=== PATIENT | female | born 1945 | race Caucasian/White ===

== ENCOUNTER → 2016-04-18 | Outpatient (CLI) | payer MEDICARE ==
--- NOTE | 2016-04-18 14:04 | MM ---
Reason for exam: follow-up at short interval from prior study. Last mammogram was performed 6 months ago. History: Patient is postmenopausal. Benign stereotactic core biopsy of the left breast, August 18, 1998. Took estrogen for 1 year beginning at age 57. Physical Findings: Nurse did not find any significant physical abnormalities on exam. MG 3D Diag Mammo W/Cad RT CC and MLO view(s) were taken of the right breast. Prior study comparison: November 01, 2015, bilateral MG 3d screening mammo w/cad. September 10, 2014, bilateral MG diagnostic mammo w CAD AALIYAH. Finding: There are calcifications in the upper outer quadrant of the right breast. No significant changes in finding since November 01, 2015 and September 10, 2014. These results were verbally communicated with the patient and result sheet given to the patient on 04/18/16. ASSESSMENT: Benign, BI-RAD 2 RECOMMENDATION: Return to routine screening mammogram schedule for both breasts. Back on schedule.
== END ==
LOC: RADMAMWWP 12:45
PROVIDERS: ATTEND Family Medicine
DX: R92.8 Other abnormal and inconclusive findings on diagnostic imaging of breast (principal)
CPT/HCPCS: G0206; G0279

== ENCOUNTER → 2016-11-27 | Outpatient (CLI) | payer MEDICARE ==
--- NOTE | 2016-11-29 10:06 | MM ---
Reason for exam: screening (asymptomatic). Last mammogram was performed 7 months ago. History: Patient is postmenopausal. Benign stereotactic core biopsy of the left breast, August 18, 1998. Took estrogen for 1 year beginning at age 57. Physical Findings: A clinical breast exam by your physician is recommended on an annual basis and results should be correlated with mammographic findings. MG 3D Screening Mammo W/Cad Bilateral CC and MLO view(s) were taken. Prior study comparison: April 18, 2016, right breast MG 3d diag mammo w/cad RT. November 01, 2015, bilateral MG 3d screening mammo w/cad. September 10, 2014, bilateral MG diagnostic mammo w CAD AALIYAH. September 08, 2013, bilateral MG screening mammo w CAD. August 25, 2012, bilateral digital screening mammo w/CAD. There are scattered fibroglandular densities. No significant changes when compared with prior studies. ASSESSMENT: Benign, BI-RAD 2 RECOMMENDATION: Routine screening mammogram of both breasts in 1 year.
== END | disposition home or self-care (01) ==
LOC: RADMAMWWP 06:56
PROVIDERS: ATTEND Family Medicine
DX: Z12.31 Encounter for screening mammogram for malignant neoplasm of breast (principal); Z78.0 Asymptomatic menopausal state
CPT/HCPCS: 77063; G0202

== ENCOUNTER → 2018-03-05 | Outpatient (CLI) | payer MEDICARE ==
--- NOTE | 2018-03-06 09:56 | MM ---
Reason for exam: screening (asymptomatic). Last mammogram was performed 1 year and 3 months ago. History: Patient is postmenopausal. Benign stereotactic core biopsy of the left breast, August 18, 1998. Took estrogen for 1 year beginning at age 57. Physical Findings: A clinical breast exam by your physician is recommended on an annual basis and results should be correlated with mammographic findings. MG 3D Screening Mammo W/Cad Bilateral CC and MLO view(s) were taken. Prior study comparison: November 27, 2016, bilateral MG 3d screening mammo w/cad. April 18, 2016, right breast MG 3d diag mammo w/cad RT. The breast tissue is heterogeneously dense. This may lower the sensitivity of mammography. There are benign appearing round calcifications bilaterally. Previous mammotome biopsy in the left breast. Asymmetric breast tissue left inferior breast. There is no discrete abnormality. ASSESSMENT: Benign, BI-RAD 2 RECOMMENDATION: Routine screening mammogram of both breasts in 1 year.
== END | disposition home or self-care (01) ==
LOC: RADMAMWWP 09:32
PROVIDERS: ATTEND Family Medicine
DX: Z12.31 Encounter for screening mammogram for malignant neoplasm of breast (principal)
CPT/HCPCS: 77063; 77067

== ENCOUNTER → 2019-05-08 | Outpatient (CLI) | payer MEDICARE ==
--- NOTE | 2019-05-11 14:24 | MM ---
Reason for exam: screening (asymptomatic). Last mammogram was performed 1 year and 2 months ago. History: Patient is postmenopausal. Benign stereotactic core biopsy of the left breast, August 18, 1998. Took estrogen for 1 year beginning at age 57. Physical Findings: A clinical breast exam by your physician is recommended on an annual basis and results should be correlated with mammographic findings. MG 3D Screening Mammo W/Cad Bilateral CC and MLO view(s) were taken. Prior study comparison: March 05, 2018, bilateral MG 3d screening mammo w/cad. November 27, 2016, bilateral MG 3d screening mammo w/cad. The breast tissue is heterogeneously dense. This may lower the sensitivity of mammography. There is no discrete abnormality. No significant changes when compared with prior studies. ASSESSMENT: Negative, BI-RAD 1 RECOMMENDATION: Routine screening mammogram of both breasts in 1 year.
== END | disposition home or self-care (01) ==
LOC: RADMAMWWP 15:12
PROVIDERS: ATTEND Family Medicine
DX: Z12.31 Encounter for screening mammogram for malignant neoplasm of breast (principal)
CPT/HCPCS: 77063; 77067

== ENCOUNTER → 2020-04-21 | Outpatient (CLI) | payer MEDICARE ==
--- NOTE | 2020-04-21 13:27 | US ---
EXAMINATION TYPE: US venous doppler duplex LE LT DATE OF EXAM: 04/21/2020 1:09 PM COMPARISON: NONE CLINICAL HISTORY: M79.605 pain in limb, R60.0 edema. Left leg swelling. Pain. No hx DVT. Not on bl ood thinners. SIDE PERFORMED: Left TECHNIQUE: The lower extremity deep venous system is examined utilizing real time linear array sonog bobbi with graded compression, doppler sonography and color-flow sonography. VESSELS IMAGED: Common Femoral Vein Deep Femoral Vein Greater Saphenous Vein * Femoral Vein Popliteal Vein Small Saphenous Vein * Proximal Calf Veins (* superficial vessels) Left Leg: Negative for DVT, edema channels seen Grayscale, color doppler, spectral doppler imaging performed of the deep veins of the left lower extr emity. There is normal flow, compressibility, vascular waveforms. IMPRESSION: No ultrasound evidence for acute DVT in the left lower extremity.
== END | disposition home or self-care (01) ==
LOC: RADUSWWP 12:48
PROVIDERS: ATTEND Family Medicine
DX: M79.605 Pain in left leg (principal); R60.0 Localized edema

== ENCOUNTER → 2020-09-14 | Outpatient (CLI) | payer MEDICARE ==
[2020-09-14 13:29] VITALS: BP 121/64; PULSE 80; RESP 18; TEMP 97.7; BMI 25.4
--- NOTE | 2020-09-14 14:10 | P.HPBAR ---
Bariatric H&P - History & Physicial H&P Date: 09/14/20 History & Physicial: Visit/CC: initial visit Patient initial contact: Initial weight: Initial weight in pounds: Height: 5 ft 2 in Initial BMI: Last weight: Current weight: 63.049 kg Current weight in pounds: 139.00 Current BMI: 25.4 [place] body weight (based on NIH guidelines): 49.895 kg Excess body weight loss: The patient is a 75 year-old F who presents for Bariatric Assessment. DATE OF SERVICE: 09/14/2020 REASON FOR CONSULTATION: Complications bariatric surgery. HISTORY OF PRESENT ILLNESS: Vida Winter is a 75-year-old female who presents first time in consultation for revision of her bariatric surgery. She reports unintentional weight loss. She can only tolerate muscle milk, strawberry type. She comes in with loss of muscle mass. She has problem with large and quick bowel movements. She had a gastric bypass 4 years ago, 2016. Her highest weight was 240 pounds. Her lowest weight is at present. She has occassional dysphagia with eating eggs. She reports often liquid soft stool. She had poor follow-up after her gastric bypass. She denies current abdominal pain. She reports having hemorrhoids and prolapsed uterus. She is concerned about losing her uterus. She does not see a reinstatement clerk or pelvic spring floor service worker. She does not want to lose any further weight. She complains of skin elastosis of the thighs and arms. She wants skin removal. She presents to me in consultation with multiple complaints including diarrhea, dysphagia, skin elastosis, and dietary management. At height of 5 feet 2 inches, her ideal body weight is 135 pounds. Her highest weight was 240 pounds, initial body mass index 44.0. She comes in 139 pounds. Liftime weight loss of 101 pounds. Lifetime percent excess weight loss of 96%. PAST MEDICAL HISTORY: 1. Morbid obesity due to excess calories 2. Body mass index of 44.0, initial 3. Hypertensive heart disease 4. Insomnia 5. Osteoarthritis of the knees 6. Cataracts 7. Parathyroid adenoma 8. Depressive disorder PAST SURGICAL HISTORY: 1. Parathyroidectomy 2. Cholecystectomy 3. Tonsillectomy 4. Biateral cataract surgery 5. Gastric bypass, 2016 HOME MEDICATIONS: Home Medications Medication Instructions Recorded Confirmed Melatonin 5 mg PO HS 01/11/14 10/20/20 Acetaminophen [Tylenol Extra 500 mg PO DIRECTED PRN 09/14/20 10/20/20 Strength] Oxybutynin Chloride [Ditropan XL] 2.5 mg PO DAILY 09/14/20 10/20/20 amLODIPine [Norvasc] 10 mg PO DAILY 09/14/20 10/20/20 Biotin 10,000 mcg PO DAILY 10/05/20 10/20/20 Jason/D3/Mag11/Zinc/Cannery Worker/Abe/Bor 1 each PO DAILY 10/05/20 10/20/20 [Caltrate 600+D Plus Tablet] Cholecalciferol [Vitamin D3 (25 50 mcg PO DAILY 10/05/20 10/20/20 Mcg = 1000 Iu)] Cyanocobalamin/Cobamamide [Vitamin 1 each SL DIRECTED 10/05/20 10/20/20 B-12 5,000 Mcg Tab Sl] Glucosam/Asif-Msm1/C/Abe/Bosw 2 each PO DAILY 10/05/20 10/20/20 [Pmhzbqzjwmt-Dzkrnyfrhwz-WDW Tb] Losartan Potassium [Cozaar] 100 mg PO DAILY 10/05/20 10/20/20 Metoprolol Succinate [Toprol XL] 25 mg PO DAILY 10/05/20 10/20/20 [place]-3 Fatty Acids [[place]-3] 900 mg PO DAILY 10/05/20 10/20/20 Pedi Multivit No.25/Folic Acid 2 tab PO DAILY 10/05/20 10/20/20 [Flintstones Multivit Chew Tab] Potassium Gluconate [Potassium 99 mg PO DAILY 10/05/20 10/20/20 Gluconate ER] Vitamin B Complex 1 each PO DAILY 10/05/20 10/20/20 diphenhydrAMINE HCL [Benadryl] 50 mg PO HS 10/05/20 10/20/20 ALLERGIES: Allergies Allergy/AdvReac Type Severity Reaction Status Date / Time No Known Allergies Allergy Verified 10/20/20 13:09 SOCIAL HISTORY: Denies past tobacco use. FAMILY HISTORY: No family history of ulcerative colitis disease or Crohn's disease. Family history of morbid obesity. No lupus in the family. No reports of stomach or esophageal cancer. REVIEW OF ORGAN SYSTEMS: CONSTITUTIONAL: At height of 5 feet 2 inches, her ideal body weight is 135 pounds. Her highest weight was 240 pounds, initial body mass index 44.0. She comes in 139 pounds. Liftime weight loss of 101 pounds. Lifetime percent excess weight loss of 96%. HEENT: Denies any active troubles with hearing. Has troubles with swallowing. Has cataracts. ENDOCRINE: Denies diabetes. No hypothyroidism. CARDIOVASCULAR: Denies past reports of palpitations or heart attacks or chest pain. Has hypertensive heart disease. RESPIRATORY: Denies daytime somnolence. Has asthma. Denies chronic obstructive pulmonary disease. GASTROINTESTINAL: Denies any bright red blood per rectum. No diarrhea. No c onstipation. Has gastroesophageal reflux disease. GENITOURINARY: Has bladder urgency. No recent blood in urine MUSCULOSKELETAL: Has lower back pain and joint pain. Has osteoarthritis of the knees. NEURO: No headaches. No seizure disorders. Has neuropathy. PSYCH: Has depression. No suicidal ideation. RHEUMATOLOGIC: No lupus. No rheumatoid arthritis. HEMATOLOGIC: Denies any abnormal bleeding or bruising. SKIN: No rash. No skin cancer. PHYSICAL EXAM: VITAL SIGNS: Height 5 foot 2 inches, weight 138 pounds. BMI 25.4 Vital Signs Temp 97.7 F 09/14/20 13:14 Pulse 80 09/14/20 13:14 Resp 18 09/14/20 13:14 BP 121/64 09/14/20 13:14 Pulse Ox GENERAL: Well-developed in no acute distress. HEENT: No scleral icterus. Extraocular movements grossly intact. Hears conversational speech. No nasal drainage. NECK: Supple without lymphadenopathy. CHEST: Nonlabored respirations with equal bilateral excursions. CARDIOVASCULAR: Regular rate and regular rhythm. Distal 2+ pulses. ABDOMEN: Obese, soft, nontender, nondistended. MUSCULOSKELETAL: No clubbing, cyanosis. NEURO: No focal or lateralizing signs. Cranial nerves 2 through 12 grossly within normal limits. PSYCH: Appropriate affect. Alert and oriented to person, place and time. SKIN: Good skin turgor. Well perfused. Moderate skin elastosis ASSESSMENT: 1. Skin elastosis 2. Dysphagia 3. Diarrhea 4. Dietary surveillance 5. Morbid obesity due to excess calories, resolved 6. Body mass index of 44.0, initial to 25.4 7. Hypertensive heart disease 8. Insomnia 9. Osteoarthritis of the knees 10. Cataracts 11. Parathyroid adenoma 12. Depressive disorder PLAN: 1. She has concerns regarding her uterus and prolapse. Recommend referral to reinstatement clerk or pelvic spring floor service worker. 2. She has skin elastosis of the thighs and arms. Referral to cosmetic surgeon described. 3. Recommend start food diary journal. 4. Recommend bariatric labs 5. Recommend upper endoscopy 6. Recommend colonoscopy Thank you for this consultation. Past Medical History Past Medical History: Eye Disorder, Hypertension Additional Past Medical History / Comment(s): CATARACT-left, urinary leakage. previous H. Pylori infection before bariatric surgery, treated. History of Any Multi-Drug Resistant Organisms: None Reported Past Surgical History: Bariatric Surgery, Cholecystectomy, Tonsillectomy Additional Past Surgical History / Comment(s): PARATHYROID SURGERY,LAPAROSCOPIC EXAM, cataract bilateral eye. 2017 - bypass surgery. Past Anesthesia/Blood Transfusion Reactions: No Reported Reaction Past Psychological History: Depression Additional Psychological History / Comment(s): depression approximately 30 years ago Smoking Status: Never smoker Past Alcohol Use History: Occasional Past Drug Use History: None Reported - Past Family History Sister(s) Additional Family Medical History / Comment(s): PULMONARY EMBOLISM Father Family Medical History: Cancer Surgical - Exam Vital Signs Temp Pulse Resp BP 97.7 F 80 18 121/64 09/14/20 13:14 09/14/20 13:14 09/14/20 13:14 09/14/20 13:14 Results - Labs 09/14/20 14:41 09/14/20 14:41 Bariatric Checklist Checklist: Plan: Checklist: EGD: 1. Hiatal hernia: 2. H. Pylori: HgbA1c: Vitamin D: Smoking: Never smoker Primary care physician referral: Dr. Johana Sosa Psychiatry clearance: Cardiology clearance: Sleep study: Diet journal: VTE risk score: VTE risk level: Rehab needs at discharge:
[2020-09-14 15:08] LABS: HCT 35.9 % (34.0-46.0); HGB 11.5 gm/dL (11.4-16.0); MCH 31.5 pg (25.0-35.0); MCHC 32.1 g/dL (31.0-37.0); MCV 98.2 fL (80.0-100.0); Mean Platelet Volume 6.8; Platelet Count 311 k/uL (150-450); RBC 3.65 m/uL (3.80-5.40); WBC 8.1 k/uL (3.8-10.6)
[2020-09-14 15:17] LABS: Partial Thromboplastin Time 24.5 sec (22.0-30.0); Prothrombin Time 10.3 sec (9.0-12.0)
[2020-09-14 21:19] LABS: % Iron Saturation 11.72 (12.00-45.00); ALT 22 U/L (8-44); AST 20 U/L (13-35); Albumin/Globulin Ratio 1.91 (1.60-3.17); Alkaline Phosphatase 134 U/L (41-126); Calcium 9.2 mg/dL (8.7-10.3); Carbon Dioxide 26.5 mmol/L (21.6-31.8); Chloride 105 mmol/L (96-109); Chol/HDL Ratio 2.56; Cholesterol 161 mg/dL (0-200); Globulin 2.3 g/dL (1.6-3.3); Glucose 116 mg/dL (70-110); Iron 34 ug/dL (50-170); LDL Cholesterol,Calculated 80.2 mg/dL (0.0-131.0); Phosphorus 3.4 mg/dL (2.4-5.1); Potassium 3.9 mmol/L (3.5-5.5); Sodium 140 mmol/L (135-145); Total Bilirubin 0.5 mg/dL (0.3-1.2); Total Iron Binding Capacity 290 ug/dL (228-460); Total Protein 6.7 g/dL (6.2-8.2)
[2020-09-14 21:26] LABS: Ferritin 137.9 ng/mL (10.0-291.0)
[2020-09-14 22:25] LABS: Estimated Average Glucose 96.8
[2020-09-15 00:39] LABS: Folate, Serum >24.0 ng/mL
[2020-09-15 14:11] LABS: Zinc, Serum 76 ug/dL (60-130)
[2020-09-16 06:51] LABS: Vitamin A 28 ug/dL (38-106)
[2020-09-19 13:46] LABS: Vit B1(Thiamine) 69 ug/L (38-122)
[2020-09-19 19:19] LABS: Selenium 88 mcg/L (63-160)
== END ==
LOC: BARWHC3 12:45
PROVIDERS: ATTEND Surgery Plastic and Reconstructive Surgery
DX: K95.89 Other complications of other bariatric procedure (principal); L87.2 Elastosis perforans serpiginosa; R13.10 Dysphagia, unspecified; R19.7 Diarrhea, unspecified; Z71.3 Dietary counseling and surveillance; I11.9 Hypertensive heart disease without heart failure; G47.00 Insomnia, unspecified; M17.0 Bilateral primary osteoarthritis of knee; H26.9 Unspecified cataract; F32.9 Major depressive disorder, single episode, unspecified; D35.1 Benign neoplasm of parathyroid gland; Z83.49 Family history of other endocrine, nutritional and metabolic diseases; Z79.899 Other long term (current) drug therapy
CPT/HCPCS: 84255; 84134; 84425; 80061; 80053; 82607; 82728; 82525; 82746; 83540; 83550; 83735; 84100; 84443; 84590; 84630; 85027; 85610; 85730; 82306; 83970; 83036; 36415; G0463; 99203

== ENCOUNTER → 2020-10-05 | Outpatient (CLI) | payer MEDICARE ==
[2020-10-05 14:57] VITALS: BP 127/74; PULSE 91; RESP 18; TEMP 98.4; BMI 25.4
--- NOTE | 2020-10-05 15:21 | P.PN ---
Subjective Progress Note Date: 10/05/20 DATE OF SERVICE: 10/05/2020 CHIEF COMPLAINTS: Status post gastric bypass HISTORY OF PRESENT ILLNESS: Vida Winter is a 75-year-old female who had a gastric bypass 4 years ago, 2017. She comes in with troubles with persistent weight loss. She brings in her food journal. Her protein intake less than 30 to 40 grams daily. She reports low energy. She avoids meats as its not easy to digest. She tolerates deviled eggs. She does not want to loose anymore weight. At height of 5 feet 2 inches, her ideal body weight is 135 pounds. Her highest weight was 240 pounds, initial body mass index 44.0. She comes in 139 pounds. Her weight is unchanged from 3 weeks ago. Liftime weight loss of 101 pounds. Lifetime percent excess weight loss of 96%. PAST MEDICAL HISTORY: 1. Morbid obesity due to excess calories 2. Body mass index of 44.0, initial 3. Hypertensive heart disease 4. Insomnia 5. Osteoarthritis of the knees 6. Cataracts 7. Parathyroid adenoma 8. Depressive disorder PAST SURGICAL HISTORY: 1. Parathyroidectomy 2. Cholecystectomy 3. Tonsillectomy 4. Biateral cataract surgery 5. Gastric bypass, 2016 HOME MEDICATIONS: Home Medications Medication Instructions Recorded Confirmed Melatonin 5 mg PO HS 01/11/14 10/20/20 Acetaminophen [Tylenol Extra 500 mg PO DIRECTED PRN 09/14/20 10/20/20 Strength] Oxybutynin Chloride [Ditropan XL] 2.5 mg PO DAILY 09/14/20 10/20/20 amLODIPine [Norvasc] 10 mg PO DAILY 09/14/20 10/20/20 Biotin 10,000 mcg PO DAILY 10/05/20 10/20/20 Jason/D3/Mag11/Zinc/Nutritional Assistant/Abe/Bor 1 each PO DAILY 10/05/20 10/20/20 [Caltrate 600+D Plus Tablet] Cholecalciferol [Vitamin D3 (25 50 mcg PO DAILY 10/05/20 10/20/20 Mcg = 1000 Iu)] Cyanocobalamin/Cobamamide [Vitamin 1 each SL DIRECTED 10/05/20 10/20/20 B-12 5,000 Mcg Tab Sl] Glucosam/Asif-Msm1/C/Abe/Bosw 2 each PO DAILY 10/05/20 10/20/20 [Gfnhausxcfg-Rpmofviasdv-FYU Tb] Losartan Potassium [Cozaar] 100 mg PO DAILY 10/05/20 10/20/20 Metoprolol Succinate [Toprol XL] 25 mg PO DAILY 10/05/20 10/20/20 [place]-3 Fatty Acids [[place]-3] 900 mg PO DAILY 10/05/20 10/20/20 Pedi Multivit No.25/Folic Acid 2 tab PO DAILY 10/05/20 10/20/20 [Flintstones Multivit Chew Tab] Potassium Gluconate [Potassium 99 mg PO DAILY 10/05/20 10/20/20 Gluconate ER] Vitamin B Complex 1 each PO DAILY 10/05/20 10/20/20 diphenhydrAMINE HCL [Benadryl] 50 mg PO HS 10/05/20 10/20/20 ALLERGIES: Allergies Allergy/AdvReac Type Severity Reaction Status Date / Time No Known Allergies Allergy Verified 10/20/20 13:09 SOCIAL HISTORY: Denies past tobacco use. FAMILY HISTORY: No family history of ulcerative colitis disease or Crohn's disease. Family history of morbid obesity. No lupus in the family. No reports of stomach or esophageal cancer. REVIEW OF ORGAN SYSTEMS: CONSTITUTIONAL: At height of 5 feet 2 inches, her ideal body weight is 135 pounds. Her highest weight was 240 pounds, initial body mass index 44.0. She comes in 139 pounds. Liftime weight loss of 101 pounds. Lifetime percent excess weight loss of 96%. HEENT: Denies any active troubles with hearing. Has troubles with swallowing. Has cataracts. ENDOCRINE: Denies diabetes. No hypothyroidism. CARDIOVASCULAR: Denies past reports of palpitations or heart attacks or chest pain. Has hypertensive heart disease. RESPIRATORY: Denies daytime somnolence. Has asthma. Denies chronic obstructive pulmonary disease. GASTROINTESTINAL: Denies any bright red blood per rectum. No diarrhea. No constipation. Has gastroesophageal reflux disease. GENITOURINARY: Has bladder urgency. No recent blood in urine MUSCULOSKELETAL: Has lower back pain and joint pain. Has osteoarthritis of the knees. NEURO: No headaches. No seizure disorders. Has neuropathy. PSYCH: Has depression. No suicidal ideation. RHEUMATOLOGIC: No lupus. No rheumatoid arthritis. HEMATOLOGIC: Denies any abnormal bleeding or bruising. SKIN: No rash. No skin cancer. PHYSICAL EXAM: VITAL SIGNS: Height 5 foot 2 inches, weight 139 pounds. BMI 25.4 Vital Signs Temp 98.4 F 10/05/20 14:52 Pulse 91 10/05/20 14:52 Resp 18 10/05/20 14:52 BP 127/74 10/05/20 14:52 Pulse Ox GENERAL: Well-developed in no acute distress. HEENT: No scleral icterus. Extraocular movements grossly intact. Hears conversational speech. No nasal drainage. NECK: Supple without lymphadenopathy. CHEST: Nonlabored respirations with equal bilateral excursions. CARDIOVASCULAR: Regular rate and regular rhythm. Distal 2+ pulses. ABDOMEN: Obese, soft, nontender, nondistended. MUSCULOSKELETAL: No clubbing, cyanosis. NEURO: No focal or lateralizing signs. Cranial nerves 2 through 12 grossly within normal limits. PSYCH: Appropriate affect. Alert and oriented to person, place and time. SKIN: Good skin turgor. Well perfused. Moderate skin elastosis LABS: Reviewed. Iron is low. Pre-albumin is low. Vitamin A is low. PTH elevated. Vitamin B-12 elevated. ASSESSMENT: 1. Skin elastosis 2. Dysphagia 3. Diarrhea 4. Dietary surveillance 5. Morbid obesity due to excess calories, resolved 6. Body mass index of 44.0, initial to 25.4 7. Hypertensive heart disease 8. Insomnia 9. Osteoarthritis of the knees 10. Cataracts 11. Parathyroid adenoma 12. Depressive disorder 13. Iron deficiency 14. Vitamin A deficiency 15. Hyperparathyroidism 16. Dietary surveillance and counseling. PLAN: 1. Recommend iron infusion 2. Recommend Vitamin A supplement 10,000 units daily 3. Increase calcium daily intake 1200 mg daily 4. Recommend upper endoscopy for dysphagia to textured foods. She is elevated risk for stricture and complications due to gastric bypass. Objective - Vital Signs Vital signs: Vital Signs Temp 98.4 F 10/05/20 14:52 Pulse 91 10/05/20 14:52 Resp 18 10/05/20 14:52 BP 127/74 10/05/20 14:52 Pulse Ox Intake & Output 10/04/20 10/05/20 10/05/20 18:59 06:59 18:59 Weight 63.049 kg
== END ==
LOC: BARWHC3 14:42
PROVIDERS: ATTEND Surgery Plastic and Reconstructive Surgery
DX: R13.10 Dysphagia, unspecified (principal); L87.2 Elastosis perforans serpiginosa; R19.7 Diarrhea, unspecified; Z71.3 Dietary counseling and surveillance; E66.01 Morbid (severe) obesity due to excess calories; I11.9 Hypertensive heart disease without heart failure; G47.00 Insomnia, unspecified; M17.0 Bilateral primary osteoarthritis of knee; H26.9 Unspecified cataract; D35.1 Benign neoplasm of parathyroid gland; F32.9 Major depressive disorder, single episode, unspecified; E61.1 Iron deficiency; E50.9 Vitamin A deficiency, unspecified; E21.3 Hyperparathyroidism, unspecified; Z68.25 Body mass index [BMI] 25.0-25.9, adult; Z98.84 Bariatric surgery status; Z79.899 Other long term (current) drug therapy
CPT/HCPCS: 99211

== ENCOUNTER → 2020-12-22 | Outpatient (CLI) | payer MEDICARE ==
[2020-12-23 05:11] LABS: % Iron Saturation 46.04 (12.00-45.00)
[2020-12-23 05:20] LABS: Ferritin 516.9 ng/mL (10.0-291.0)
== END | disposition home or self-care (01) ==
LOC: LABWHC1 12:10
PROVIDERS: ATTEND Surgery Plastic and Reconstructive Surgery
DX: E66.01 Morbid (severe) obesity due to excess calories (principal); D50.8 Other iron deficiency anemias; Z98.84 Bariatric surgery status
CPT/HCPCS: 36415; 82728; 83540; 83550; 83970; 84134; 84590

== ENCOUNTER 2020-12-24 13:37 | Emergency (ER) | payer MEDICARE ==
[2020-12-24 13:47] VITALS: TEMP 98.7
[2020-12-24] MEDS ORDERED: SODIUM CHLORIDE 0.9% 500 ML 500 ML IV STA (14:18)
--- NOTE | 2020-12-24 14:22 | ED ---
Abdominal Pain HPI - General Chief Complaint: Abdominal Pain Stated Complaint: R side Abd pain,vomiting Time Seen by Provider: 12/24/20 14:10 Source: patient, family, RN notes reviewed, old records reviewed Mode of arrival: ambulatory Limitations: no limitations - History of Present Illness Initial Comments: 75-year-old female patient, alert and oriented 4, presents to the emergency room with right lower quadrant pain for the past 2 weeks on and off. She describes it as an ache. She denies any fevers or chills. She denies any shortness of breath or chest pain. She is concerned that she might have an appendicitis. She states that when the pain does come in 10 out of 10 but it is gone at this time. No history of diverticulosis she does have a surgical history of cholecystectomy and bariatric surgery. MD Complaint: abdominal pain -: week(s) (2) Location: RLQ Radiation: none Severity scale (1-10): 0 Quality: aching Consistency: now resolved Improves With: other (Lying flat) Worsens With: movement Associated Symptoms: nausea - Related Data Home Medications Medication Instructions Recorded Confirmed Melatonin 5 mg PO HS 01/11/14 10/20/20 Acetaminophen [Tylenol Extra 500 mg PO DIRECTED PRN 09/14/20 10/20/20 Strength] Oxybutynin Chloride [Ditropan XL] 2.5 mg PO DAILY 09/14/20 10/20/20 amLODIPine [Norvasc] 10 mg PO DAILY 09/14/20 10/20/20 Biotin 10,000 mcg PO DAILY 10/05/20 10/20/20 Jason/D3/Mag11/Zinc/Player Development Executive/Abe/Bor 1 each PO DAILY 10/05/20 10/20/20 [Caltrate 600+D Plus Tablet] Cholecalciferol [Vitamin D3 (25 50 mcg PO DAILY 10/05/20 10/20/20 Mcg = 1000 Iu)] Cyanocobalamin/Cobamamide [Vitamin 1 each SL DIRECTED 10/05/20 10/20/20 B-12 5,000 Mcg Tab Sl] Glucosam/Asif-Msm1/C/Abe/Bosw 2 each PO DAILY 10/05/20 10/20/20 [Bqaddzrphvz-Kgflimejtdi-WAB Tb] Losartan Potassium [Cozaar] 100 mg PO DAILY 10/05/20 10/20/20 Metoprolol Succinate [Toprol XL] 25 mg PO DAILY 10/05/20 10/20/20 [place]-3 Fatty Acids [[place]-3] 900 mg PO DAILY 10/05/20 10/20/20 Pedi Multivit No.25/Folic Acid 2 tab PO DAILY 10/05/20 10/20/20 [[place] Multivit Chew Tab] Potassium Gluconate [Potassium 99 mg PO DAILY 10/05/20 10/20/20 Gluconate ER] Vitamin B Complex 1 each PO DAILY 10/05/20 10/20/20 diphenhydrAMINE HCL [Benadryl] 50 mg PO HS 10/05/20 10/20/20 Previous Rx's Medication Instructions Recorded HYDROcodone/APAP 5-325MG [[place] 1 tab PO Q6HR PRN 3 Days #12 tab 12/24/20 5-325] HYDROcodone/APAP 5-325MG [[place] 1 tab PO Q6HR PRN 3 Days #12 tab 12/24/20 5-325] Sulfamethox-Tmp 800-160Mg [Bactrim 1 each PO Q12HR 7 Days #14 tab 12/24/20 Ds] Allergies Allergy/AdvReac Type Severity Reaction Status Date / Time No Known Allergies Allergy Verified 12/24/20 13:47 Review of Systems ROS Statement: Those systems with pertinent positive or pertinent negative responses have been documented in the HPI. ROS Other: All systems not noted in ROS Statement are negative. Past Medical History Past Medical History: Eye Disorder, Hypertension Additional Past Medical History / Comment(s): CATARACT-left, urinary leakage. previous H. Pylori infection before bariatric surgery, treated. History of Any Multi-Drug Resistant Organisms: None Reported Past Surgical History: Bariatric Surgery, Cholecystectomy, Tonsillectomy Additional Past Surgical History / Comment(s): PARATHYROID SURGERY,LAPAROSCOPIC EXAM, cataract bilateral eye. 2017 - bypass surgery. Past Anesthesia/Blood Transfusion Reactions: No Reported Reaction Past Psychological History: Depression Smoking Status: Never smoker Past Alcohol Use History: Occasional Past Drug Use History: None Reported - Past Family History Sister(s) Additional Family Medical History / Comment(s): PULMONARY EMBOLISM Father Family Medical History: Cancer General Exam Limitations: no limitations General appearance: alert, in no apparent distress Head exam: Present: atraumatic, normocephalic, normal inspection Eye exam: Present: normal appearance, PERRL, EOMI. Absent: scleral icterus, conjunctival injection, periorbital swelling ENT exam: Present: normal exam, mucous membranes moist Neck exam: Present: normal inspection, full ROM. Absent: tenderness, meningismus, lymphadenopathy, thyromegaly Respiratory exam: Present: normal lung sounds bilaterally. Absent: respiratory distress, wheezes, rales, rhonchi, stridor Cardiovascular Exam: Present: regular rate, normal rhythm, normal heart sounds. Absent: systolic murmur, diastolic murmur, rubs, gallop, clicks GI/Abdominal exam: Present: soft, mass (midline large abdominal mass). Absent: distended, tenderness, rigid Extremities exam: Present: normal inspection, full ROM, normal capillary refill. Absent: tenderness, pedal edema, joint swelling, calf tenderness Back exam: Present: normal inspection, full ROM. Absent: tenderness, CVA tenderness (R), CVA tenderness (L) Expanded Back exam: Absent: saddle anesthesia Back exam: Negative Straight Leg Raising: Left, Right Neurological exam: Present: alert, oriented X3, CN II-XII intact Psychiatric exam: Present: normal affect, normal mood Skin exam: Present: warm, dry, intact, normal color. Absent: rash, cyanosis, diaphoretic, erythema, petechiae, pallor Course Vital Signs 12/24/20 12/24/20 13:45 16:49 Temperature 98.7 F Pulse Rate 61 76 Respiratory 22 18 Rate Blood Pressure 147/76 126/72 O2 Sat by Pulse 96 98 Oximetry Medical Decision Making - Medical Decision Making CT the abdomen and pelvis without contrast shows a large intraperitoneal abdominal mass that could represent a malignant tumor of the bowel, ovaries or other sarcoma. There is no evidence of bowel obstruction. Mass measures 22 x 13 cm and is midline anterior abdomen. There is also a smaller adjacent mass on the right side of the right lower quadrant measuring 8 x 4 cm with abdominal ascites. This is likely the source of the patient's pain. There is no evidence of leukocytosis. UA shows positive nitrites, small leukocyte esterase, 9 WBCs with moderate bacteria. She will be treated for UTI. Case was discussed with Dr. Haas. She'll be discharged home to follow up with her surgeon Dr. Greene in her primary care doctor Dr. Johana Sosa. She was instructed to return to the emergency room with any new or worsening symptoms including nausea and vomiting, increased pain or fevers. Patient was given Zofran for any nausea and [place] for pain. - Lab Data Result diagrams: 12/24/20 14:29 12/24/20 14:29 Lab Results 12/24/20 12/24/20 12/24/20 Range/Units 14:29 14:29 14:29 WBC 6.6 (3.8-10.6) k/uL RBC 3.78 L (3.80-5.40) m/uL Hgb 12.3 (11.4-16.0) gm/dL Hct 37.8 (34.0-46.0) % MCV 100.0 (80.0-100.0) fL MCH 32.6 (25.0-35.0) pg MCHC 32.6 (31.0-37.0) g/dL RDW 13.7 (11.5-15.5) % Plt Count 232 (150-450) k/uL MPV 6.8 Neutrophils % 91 % Lymphocytes % 5 % Monocytes % 2 % Eosinophils % 1 % Basophils % 0 % Neutrophils # 6.0 (1.3-7.7) k/uL Lymphocytes # 0.4 L (1.0-4.8) k/uL Monocytes # 0.2 (0-1.0) k/uL Eosinophils # 0.0 (0-0.7) k/uL Basophils # 0.0 (0-0.2) k/uL Sodium 135 L (137-145) mmol/L Potassium 3.9 (3.5-5.1) mmol/L Chloride 106 (98-107) mmol/L Carbon Dioxide 21 L (22-30) mmol/L Anion Gap 8 mmol/L BUN 17 (7-17) mg/dL Creatinine 0.35 L (0.52-1.04) mg/dL Est GFR (CKD-EPI)AfAm >90 (>60 ml/min/1.73 sqM) Est GFR (CKD-EPI)NonAf >90 (>60 ml/min/1.73 sqM) Glucose 129 H (74-99) mg/dL Plasma Lactic Acid [place] (0.7-2.0) mmol/L Calcium 8.6 (8.4-10.2) mg/dL Total Bilirubin 0.8 (0.2-1.3) mg/dL AST 41 H (14-36) U/L ALT 41 H (4-34) U/L Alkaline Phosphatase 108 (38-126) U/L Troponin I (0.000-0.034) ng/mL Total Protein 6.0 L (6.3-8.2) g/dL Albumin 3.5 (3.5-5.0) g/dL Amylase 53 (30-110) U/L Lipase 46 (23-300) U/L Urine Color Yellow Urine Appearance Cloudy H (Clear) Urine pH 5.5 (5.0-8.0) Ur Specific [place] 1.015 (1.001-1.035) Urine Protein Negative (Negative) Urine Glucose (UA) Negative (Negative) Urine Ketones Trace H (Negative) Urine Blood Negative (Negative) Urine Nitrite Positive H (Negative) Urine Bilirubin Negative (Negative) Urine Urobilinogen <2.0 (<2.0) mg/dL Ur Leukocyte Esterase Small H (Negative) Urine RBC 2 (0-5) /hpf Urine WBC 9 H (0-5) /hpf Ur Squamous Epith Cells 1 (0-4) /hpf Urine Bacteria Moderate H (None) /hpf Urine Mucus Occasional H (None) /hpf 12/24/20 12/24/20 Range/Units 14:29 14:29 WBC (3.8-10.6) k/uL RBC (3.80-5.40) m/uL Hgb (11.4-16.0) gm/dL Hct (34.0-46.0) % MCV (80.0-100.0) fL MCH (25.0-35.0) pg MCHC (31.0-37.0) g/dL RDW (11.5-15.5) % Plt Count (150-450) k/uL MPV Neutrophils % % Lymphocytes % % Monocytes % % Eosinophils % % Basophils % % Neutrophils # (1.3-7.7) k/uL Lymphocytes # (1.0-4.8) k/uL Monocytes # (0-1.0) k/uL Eosinophils # (0-0.7) k/uL Basophils # (0-0.2) k/uL Sodium (137-145) mmol/L Potassium (3.5-5.1) mmol/L Chloride (98-107) mmol/L Carbon Dioxide (22-30) mmol/L Anion Gap mmol/L BUN (7-17) mg/dL Creatinine (0.52-1.04) mg/dL Est GFR (CKD-EPI)AfAm (>60 ml/min/1.73 sqM) Est GFR (CKD-EPI)NonAf (>60 ml/min/1.73 sqM) Glucose (74-99) mg/dL Plasma Lactic Acid [place] 0.8 (0.7-2.0) mmol/L Calcium (8.4-10.2) mg/dL Total Bilirubin (0.2-1.3) mg/dL AST (14-36) U/L ALT (4-34) U/L Alkaline Phosphatase (38-126) U/L Troponin I <0.012 (0.000-0.034) ng/mL Total Protein (6.3-8.2) g/dL Albumin (3.5-5.0) g/dL Amylase (30-110) U/L Lipase (23-300) U/L Urine Color Urine Appearance (Clear) Urine pH (5.0-8.0) Ur Specific [place] (1.001-1.035) Urine Protein (Negative) Urine Glucose (UA) (Negative) Urine Ketones (Negative) Urine Blood (Negative) Urine Nitrite (Negative) Urine Bilirubin (Negative) Urine Urobilinogen (<2.0) mg/dL Ur Leukocyte Esterase (Negative) Urine RBC (0-5) /hpf Urine WBC (0-5) /hpf Ur Squamous Epith Cells (0-4) /hpf Urine Bacteria (None) /hpf Urine Mucus (None) /hpf - EKG Data EKG shows normal: sinus rhythm (Ventricular rate 64, RI interval 0.190, QRS of 0.88, QTc 0.453) Disposition Clinical Impression: Abdominal mass, UTI (urinary tract infection) Disposition: HOME SELF-CARE Condition: Good Instructions (If sedation given, give patient instructions): Urinary Tract Infection in Women (ED), Acute Abdominal Pain (ED) Additional Instructions: Take antibiotics for urinary tract infection and increase your fluid intake. Take Zofran as needed for nausea, [place] as needed for pain and follow-up with the primary care doctor and surgeon next week. Return to the emergency room with any new or worsening symptoms including persistent nausea vomiting, increased pain or fevers. Prescriptions: Sulfamethox-Tmp 800-160Mg [Bactrim Ds] 1 each PO Q12HR 7 Days #14 tab HYDROcodone/APAP 5-325MG [[place] 5-325] 1 tab PO Q6HR PRN 3 Days #12 tab PRN Reason: Pain HYDROcodone/APAP 5-325MG [[place] 5-325] 1 tab PO Q6HR PRN 3 Days #12 tab PRN Reason: Pain Is patient prescribed a controlled substance at d/c from ED?: No Referrals: Johana Sosa MD [Primary Care Provider] - 1-2 days Linda Greene MD [STAFF PHYSICIAN] - 1-2 days Time of Disposition: 16:08
[2020-12-24 14:52] LABS: ALT 41 U/L (4-34); AST 41 U/L (14-36); African American GFR (CKD) >90 (>60 ml/min/1.73 sqM); Albumin 3.5 g/dL (3.5-5.0); Alkaline Phosphatase 108 U/L (38-126); Amylase 53 U/L (30-110); Anion Gap 8 mmol/L; Basophils % (A) 0 %; Blood Urea Nitrogen 17 mg/dL (7-17); Calcium 8.6 mg/dL (8.4-10.2); Carbon Dioxide 21 mmol/L (22-30); Chloride 106 mmol/L (98-107); Eosinophils % (A) 1 %; Glucose 129 mg/dL (74-99); HCT 37.8 % (34.0-46.0); HGB 12.3 gm/dL (11.4-16.0); Lipase 46 U/L (23-300); Lymphocytes # (A) 0.4 k/uL (1.0-4.8); Lymphocytes % (A) 5 %; MCH 32.6 pg (25.0-35.0); MCHC 32.6 g/dL (31.0-37.0); Mean Platelet Volume 6.8; Monocytes # (A) 0.2 k/uL (0-1.0); Monocytes % (A) 2 %; Neutrophils % (A) 91 %; Non-African American GFR(CKD) >90 (>60 ml/min/1.73 sqM); Platelet Count 232 k/uL (150-450); Potassium 3.9 mmol/L (3.5-5.1); RBC 3.78 m/uL (3.80-5.40); RDW 13.7 % (11.5-15.5); Sodium 135 mmol/L (137-145); Total Bilirubin 0.8 mg/dL (0.2-1.3); WBC 6.6 k/uL (3.8-10.6)
[2020-12-24 14:58] LABS: Appearance,Urine Cloudy (Clear); Bacteria,Urine Moderate /hpf; Bilirubin,Urine Negative (Negative); Blood,Urine Negative (Negative); Color,Urine Yellow; Glucose,Urine (UA) Negative (Negative); Ketones,Urine Trace (Negative); Leukocyte Esterase,Urine Small (Negative); Mucus,Urine Occasional /hpf; Nitrite,Urine Positive (Negative); PH, Urine 5.5 (5.0-8.0); Protein,Urine Negative (Negative); RBC,Urine 2 /hpf (0-5); Specific Gravity,Urine 1.015 (1.001-1.035); Squamous Epithelial Cell,Urine 1 /hpf (0-4); Urobilinogen,Urine <2.0 mg/dL (<2.0); WBC,Urine 9 /hpf (0-5)
--- NOTE | 2020-12-24 15:24 | CT ---
EXAMINATION TYPE: CT abdomen pelvis wo con DATE OF EXAM: 12/24/2020 COMPARISON: None HISTORY: Right sided Abdominal pain. CT DLP: 439.8 mGycm Automated exposure control for dose reduction was used. Lung bases are clear. There is no pleural effusion. Heart size is fairly normal. There is no pericard ial effusion. There are numerous surgical clips around the stomach. Liver and spleen are intact. Ther e is no sign of pancreatic mass. There are apparent clips from cholecystectomy. There is no adrenal mass. There is some hypertrophy of the adrenal glands. Kidneys show no hydronephr osis. Ureters are not dilated. Bladder distends smoothly. There is a large mass in the abdomen that measures 22 x 13 cm in the midline anterior abdomen which h as mixed attenuation. There is apparent smaller adjacent mass on the right side in the right lower qu adrant measuring 8 x 4 cm. There is abdominal ascites. I see no sign of a bowel obstruction. There is spondylotic changes in the lumbar spine. There is a degenerative mild first-degree L4-5 spon dylolisthesis. There is multilevel vacuum disc. There is no compression fracture. The bony pelvis is intact. There is subcutaneous edema around the abdomen. IMPRESSION: Large intraperitoneal abdominal mass. Origin is not clear. This could be malignant tumor of the bowel or ovaries or other sarcoma. No sign of a bowel obstruction.
[2020-12-24] MEDS ORDERED: ONDANSETRON 4 MG ODT STARTER PACK 2 TAB BTL PO STA (16:14)
[2020-12-24] MEDS ORDERED: ONDANSETRON 4 MG/2 ML VIAL IVP STA (16:37)
[2020-12-24] MEDS ORDERED: HYDROmorphone 0.5 MG/0.5 ML SYRINGE IVP STA (16:37)
[2020-12-24 16:50] VITALS: BP 126/72; PULSE 76; RESP 18
== END 2020-12-24 16:50 | disposition home or self-care (01) ==
LOC: EC 13:37
DX: N39.0 Urinary tract infection, site not specified (principal); I10 Essential (primary) hypertension; F32.9 Major depressive disorder, single episode, unspecified; Z79.899 Other long term (current) drug therapy; Z90.49 Acquired absence of other specified parts of digestive tract
CPT/HCPCS: 36415; 93005; 80053; 82150; 83605; 83690; 84484; 85025; 81001; 74176; 96374; 96375; 96361 ×2; 99284; J2405; S0119; J1170

== ENCOUNTER → 2021-01-06 | Outpatient (CLI) | payer MEDICARE ==
[2021-01-06 13:59] LABS: African American GFR (CKD) >90 (>60 ml/min/1.73 sqM); Blood Urea Nitrogen 18 mg/dL (7-17); Non-African American GFR(CKD) >90 (>60 ml/min/1.73 sqM)
--- NOTE | 2021-01-06 15:52 | CT ---
EXAMINATION TYPE: CT abdomen pelvis w con DATE OF EXAM: 01/06/2021 COMPARISON: CT 12/24/2020 HISTORY: generalized pain, soft tissue sarcoma CT DLP: 779 mGycm Automated exposure control for dose reduction was used. TECHNIQUE: Helical acquisition of images from the lung bases through the pelvis have been completed. CONTRAST: Performed with Oral Contrast and with IV Contrast, patient injected with 100 mL of Isovue 300. FINDINGS: Similar to prior exam. There is a large mass present within the abdomen with mixed attenuat ion measuring approximately 19 cm in transverse dimension by 12.7 cm in AP dimension by 19.3 cm in ce phalad to caudal dimension that previously measured approximately 14.7 cm in transverse by 13 cm in A P by 21.6 cm in cephalad to caudal dimension. Mass displaces the uterus towards the right of midline. There are anasarca changes present. Postop changes are noted on the gastroesophageal junction and stomach LUNG BASES: No significant abnormality is appreciated. AORTA: No significant abnormality is appreciated. LIVER/GB: No significant interval change is appreciated, patient is post cholecystectomy, there are d ilated biliary ducts likely due to postcholecystectomy change. PANCREAS: No significant abnormality is seen. SPLEEN: No significant abnormality is seen. ADRENALS: No significant abnormality is seen. KIDNEYS: No significant abnormality is seen. REPRODUCTIVE ORGANS: No significant interval change is seen BOWEL: No significant abnormality is seen. FREE AIR: No Free Air visible. ASCITES: The free fluid is decreased compared to prior exam. PELVIC ADENOPATHY: None visualized. RETROPERITONEAL ADENOPATHY: No Retroperitoneal Adenopathy visible. URINARY BLADDER: No significant abnormality is seen. OSSEOUS STRUCTURES: No significant abnormality is seen. IMPRESSION: INTERVAL GROWTH OF PATIENT'S ABDOMINAL MASS.
== END | disposition home or self-care (01) ==
LOC: RADCTMAIN 12:44
PROVIDERS: ATTEND Surgery Plastic and Reconstructive Surgery
DX: C49.4 Malignant neoplasm of connective and soft tissue of abdomen (principal)
CPT/HCPCS: 82565; 84520; 74177; 36415; Q9967

== ENCOUNTER → 2021-02-10 | Outpatient (CLI) | payer MEDICARE ==
--- NOTE | 2021-02-13 11:40 | MM ---
Reason for exam: screening (asymptomatic). Last mammogram was performed 1 year and 9 months ago. History: Patient is postmenopausal. Benign stereotactic core biopsy of the left breast, August 18, 1998. Took estrogen for 1 year beginning at age 57. Physical Findings: A clinical breast exam by your physician is recommended on an annual basis and results should be correlated with mammographic findings. MG 3D Screening Mammo W/Cad Bilateral CC and MLO view(s) were taken. Prior study comparison: May 08, 2019, bilateral MG 3d screening mammo w/cad. March 05, 2018, bilateral MG 3d screening mammo w/cad. The breast tissue is extremely dense which could obscure a lesion on mammography. There are benign appearing round vascular calcifications bilaterally. Previous mammotome biopsy in the left breast. There is no discrete abnormality. ASSESSMENT: Benign, BI-RAD 2 RECOMMENDATION: Routine screening mammogram of both breasts in 1 year. Some consider bilateral ultrasound surveillance in patient with extremely dense fibroglandular tissue.
== END | disposition home or self-care (01) ==
LOC: RADMAMWWP 08:20
PROVIDERS: ATTEND Family Medicine
DX: Z12.31 Encounter for screening mammogram for malignant neoplasm of breast (principal); Z78.0 Asymptomatic menopausal state; R92.1 Mammographic calcification found on diagnostic imaging of breast
CPT/HCPCS: 77063; 77067

== ENCOUNTER → 2021-05-10 | Outpatient (CLI) | payer MEDICARE ==
[2021-05-10 13:59] VITALS: BP 168/98; PULSE 77; RESP 18; TEMP 98.3
--- NOTE | 2021-05-10 14:00 | P.HPBAR ---
Bariatric H&P - History & Physicial H&P Date: 05/10/21 History & Physicial: Visit/CC: Patient initial contact: Initial weight: Initial weight in pounds: Height: Initial BMI: Last weight: Current weight: Current weight in pounds: Current BMI: [place] body weight (based on NIH guidelines): Excess body weight loss: The patient is a 76 year-old F who presents for Bariatric Assessment. 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 She had stage I surgery fallopian tubes. She had TAHBSO and no further treatment needed. She went to cancer treatments of [facility]. Skin removal. She is having prolapsed lady parts. She has rectocele. Plan for rectocele. Needs pelvic floor finisher helper. Recommend Nystatin powder. Has grad 3 panniculosis, 5 cm hanging. Well healed mid-line incisions. Past Medical History Past Medical History: Eye Disorder, Hypertension Additional Past Medical History / Comment(s): CATARACT-left, urinary leakage. previous H. Pylori infection before bariatric surgery, treated. History of Any Multi-Drug Resistant Organisms: None Reported Past Surgical History: Bariatric Surgery, Cholecystectomy, Tonsillectomy Additional Past Surgical History / Comment(s): PARATHYROID SURGERY,LAPAROSCOPIC EXAM, cataract bilateral eye. 2017 - bypass surgery. Past Anesthesia/Blood Transfusion Reactions: No Reported Reaction Past Psychological History: Depression Smoking Status: Never smoker Past Alcohol Use History: Occasional Past Drug Use History: None Reported - Past Family History Sister(s) Additional Family Medical History / Comment(s): PULMONARY EMBOLISM Father Family Medical History: Cancer Bariatric Checklist Checklist: Plan: Checklist: EGD: 1. Hiatal hernia: 2. H. Pylori: HgbA1c: Vitamin D: Smoking: Never smoker Primary care physician referral: yaz Psychiatry clearance: Cardiology clearance: Sleep study: Diet journal: VTE risk score: VTE risk level: Rehab needs at discharge:
[2021-05-10 14:42] VITALS: BMI 24.7
== END ==
LOC: BARWHC3 13:01
PROVIDERS: ATTEND Surgery Plastic and Reconstructive Surgery
DX: E66.01 Morbid (severe) obesity due to excess calories (principal); Z71.3 Dietary counseling and surveillance; I10 Essential (primary) hypertension; F32.A Depression, unspecified; Z98.84 Bariatric surgery status; Z68.24 Body mass index [BMI] 24.0-24.9, adult; Z79.899 Other long term (current) drug therapy
CPT/HCPCS: 97803; G0463; 99211

== ENCOUNTER → 2021-08-11 | Outpatient (CLI) | payer MEDICARE ==
--- NOTE | 2021-08-11 09:10 | BD ---
EXAMINATION TYPE: Axial Bone Density DATE OF EXAM: 08/11/2021 COMPARISON: 01.20.2002 CLINICAL HISTORY: 76 years year old Female. ICD-10 CODE: N95.1 post menopausal symptoms Height: 60 Weight: 134 FRAX RISK QUESTIONS: History of Fracture in Adulthood: NO 4. Malnutrition: BARIATRIC SURG, HAVE TO BE SURE TO EAT PROPERLY RISK FACTORS HISTORY OF: Diet low in dairy products/other sources of calcium: YES, LACTOSE INTOLERANT Postmenopausal woman: YES, IN HER 50s Take estrogen and/or progesterone medications: YES, FOR A SHORT WHILE, 2001 Lost more than 2 inches in height since high school: YES Hyperparathyroidism: YES, IN THE PAST ONE REMOVED Adrenal Insufficiency: NO MEDICATIONS: Prednisone or other steroids: YES, FLONASE Additional Medications: CALCIUM, VIT D, BP MEDS, HEART MED, CHOLESTEROL MEDS IN THE PAST, Additional History: BARIATRIC SURG, 4 YRS AGO, TOTAL HYST AT 75 YRS OLD, HEART CONDITION, HYPERTENSIO N, CHOLESTEROL, EXAM MEASUREMENTS: Bone mineral densitometry was performed using the [email or web address] System. Bone mineral density as measured about the Lumbar spine is: ----- L1-L4(G/cm2): 1.047 T Score Values are as follows: ----- L1: -2.6 ----- L2: -3.3 ----- L3: -0.9 ----- L4: 0.9 ----- L1-L4: -1.1 Bone mineral density has: Decreased -16.1% since study of: 01.20.2002 Bone mineral density about the R hip (g/cm2): 0.717 Bone mineral density about the L hip (g/cm2): 0.651 T Score values are as follows: -----R Neck: -2.3 -----L Neck: -3.1 -----R Total: -2.3 -----L Total: -2.8 Bone mineral density has: Decreased -32.8% since study of: 01.20.2002 FRAX%s: The graph provided illustrates a 24.0% chance for a major osteoporotic fx and a 9.9% chance f or the hips probability for fx in 10 years time. IMPRESSION: Osteoporosis NOTE: T-SCORE=SD OF THE YOUNG ADULT MEAN.
== END | disposition home or self-care (01) ==
LOC: RADBDWWP 07:50
PROVIDERS: ATTEND Family Medicine
DX: M81.0 Age-related osteoporosis without current pathological fracture (principal)
CPT/HCPCS: 77080